=== PATIENT | female | born 1975 | race Caucasian/White ===

== ENCOUNTER 2018-02-13 20:28 | Emergency (ER) | payer OTHER, SELFPAY ==
[2018-02-13 20:28] VITALS: BP 154/124; PULSE 92; RESP 20; TEMP 36.7; O2SAT 98; BMI 29.8
[2018-02-13] MEDS: HYDROcodone Bitartrate/Apap 5/325 Tablet PO (21:17)
--- NOTE | 2018-02-13 21:32 | ED.DCSUM_ITS ---
- ER Visit Summary Date of Service: 02/13/18 Chief Complaint: Fingertip laceration History of Present Illness: The patient is a 42 F presents to the emergency department with work-related fingertip laceration. Patient was cleaning a table. She incised her distal tip of her middle finger on a metal bar. She states that it took the tip off. She has been unable to get it to stop bleeding. It happened about an hour prior to arrival. She does not take anticoagulants. She denies any other injuries. The patient is otherwise healthy. Physical Examination: Name is relatively unremarkable. Patient has 1 cm ovoid area of tissue loss on the distal tip of the finger. There was no visible bone. It is just through the dermis. There is no nailbed involvement. There is some mild venous bleeding. There is no pulsatile bleeding. Rest of exam is unremarkable. Flexion is preserved. Extension is preserved. Test Results: [] Emergency Department Course and Treatment: Patient has complete tissue loss of the distal tip of the finger. There is no evidence of bony injury. There is nothing that can be primary closed due to the amount of tissue loss. Surgifoam dressing was placed with care taken to prevent aggressive compression and ischemic digit. There was no bleeding through the tip. The patient will keep this dressing in place for 48 hours. I did rehabilitation counsellor her that if she has any continued bleeding or worsening pain, she needs to be reevaluated in the dressing will need to be removed. [facility] The patient will be discharged home. Treatment Plan: [] Disposition: [] Impression: 1. Left third finger skin avulsion This note was generated with [employer] dictation software. It may contain incorrect words, spelling, and punctuation that were not noted in review of the chart prior to signing ED Disposition - Plan for ED Patient: Chief Complaint: Laceration Instructions: ED Avulsion Dermal Referrals: [facility] [GROUP OF PHYSICIANS] -
== END 2018-02-13 21:49 | disposition home or self-care (01) ==
LOC: ED 21:26
PROVIDERS: Emergency Provider Emergency Medicine; Family Provider Family Medicine; PCP Family Medicine
DX: S61.213A Laceration without foreign body of left middle finger without damage to nail, initial encounter (principal); W26.9XXA Contact with unspecified sharp object(s), initial encounter; Y93.G1 Activity, food preparation and clean up; Y92.89 Other specified places as the place of occurrence of the external cause; Y99.0 Civilian activity done for income or pay
CPT/HCPCS: 99283; A4216

== ENCOUNTER 2018-03-30 20:17 | Emergency (ER) | payer MEDICAID, SELFPAY ==
[2018-03-30 20:18] VITALS: BP 125/69; PULSE 90; RESP 14; TEMP 37; O2SAT 96; BMI 28.9
--- NOTE | 2018-03-30 21:49 | ED.VISSUMM ---
- ER Visit Summary Date of Service: 03/30/18 Chief Complaint: [] Rash History of Present Illness: The patient is a 42 F [] complaining of rash to the upper and lower extremities and abdomen and back. Patient reports she recently went tanning in a tanning bed and applied lotion to her body. She reports this last exposure was 4 days ago. She reports symptoms started today. Denies fevers denies other complaints at this time. Reports slight itching. Physical Examination: [] Afebrile, vital signs stable. Examination of the skin reveals lesions consistent with contact dermatitis. Remainder of exam is unremarkable. Test Results: [] None. Emergency Department Course and Treatment: [] Patient given prednisone and Vistaril for symptom relief. She was given prescriptions for both. She was encouraged to discontinue suntan lotion and suntanning. Treatment Plan: [] Outpatient prescriptions and follow-up with PCP. Disposition: [] Discharge, stable. Impression: [] Contact dermatitis This note was generated with [employer] dictation software. It may contain incorrect words, spelling, and punctuation that were not noted in review of the chart prior to signing ED Disposition - Plan for ED Patient: Chief Complaint: Rash Referrals: Justin Duncan MD [Primary Care Provider] -
[2018-03-30 21:50] VITALS: BP 131/80; PULSE 80; RESP 14; O2SAT 99
--- NOTE | 2018-03-30 21:51 | ED.DEP ---
ED Disposition - Plan for ED Patient: Disposition: Home or Assisted Living Chief Complaint: Rash Instructions: ED Allergic Reaction General Other Prescriptions: Hydroxyzine Pamoate [Vistaril] 50 mg PO BID PRN PRN #20 cap PRN Reason: Itching Prednisone [Deltasone] 40 mg PO DAILY 5 Days #5 tab Referrals: Justin Duncan MD [Primary Care Provider] -
[2018-03-30] MEDS: predniSONE 20 MG Tablet 40 MG PO (21:58)
[2018-03-30] MEDS: hydrOXYzine PAM 25 MG Capsule 50 MG PO (21:59)
== END 2018-03-30 22:00 | disposition home or self-care (01) ==
PROVIDERS: Emergency Provider Emergency Medicine; Family Provider Family Medicine; PCP Family Medicine
DX: L25.9 Unspecified contact dermatitis, unspecified cause (principal); Z79.899 Other long term (current) drug therapy
CPT/HCPCS: 99283

== ENCOUNTER 2019-06-14 12:28 | Emergency (ER) | payer MEDICAID, SELFPAY ==
[2019-06-14 12:28] VITALS: BP 127/83; PULSE 82; RESP 18; TEMP 36.4; O2SAT 98; BMI 29.1
[2019-06-14 12:47] LABS: Red Blood Cells-Urine 0 SEEN /hpf (0-5)
[2019-06-14 12:58] LABS: Color, Urine Yellow (Yellow); Glucose, Dipstick Normal (Normal); Ketone-Dipstick 5 mg/dl (Negative); Leukocyte Esterase-Dipstick 25 /ul (Negative); Nitrite-Dipstick Negative (Negative); Occult Blood-Urine Negative /ul (Negative); Protein-Dipstick Negative (Negative); Specific Gravity, Urine 1.025 (1.002-1.030); Urine Bilirubin Dipstick Negative (Negative); Urine Clarity Sl. Cloudy (Clear); Urine Urobilinogen Normal (Normal)
[2019-06-14 13:01] LABS: Bacteria 1+ /hpf (None Seen); Mucous, Urine 1+ /hpf (<or=2+); Squamous Epithelial Cells - UA 0-5 SEEN /hpf (5-10); White Blood Cells 0-5 SEEN /hpf (0-5)
--- NOTE | 2019-06-14 13:29 | ED.VIS.GEN ---
History of Present Illness Chief Complaint: Complaint Detail of Chief Complaint: Dysuria and frequency Informant: Patient Onset: Days Current Severity: Mild Maximum Severity: Moderate Narrative: Patient states that she developed diarrhea after eating at [employer] 3 days ago. She believes she dehydrated herself. Over the past 2 days she has noted dysuria, frequency, with small amounts of urine produced. She has not had a UTI in several years. Had a hysterectomy 3 years ago. No vaginal discharge or lesions. Past Medical History - Allergies and Home Meds Allergies/Adverse Reactions: Allergies egg Allergy (Verified 06/14/19 12:31) Other Fish Containing Products Allergy (Verified 06/14/19 12:31) Anaphylaxis Penicillins [PCN] Allergy (Verified 06/14/19 12:31) Swelling shellfish derived Allergy (Verified 06/14/19 12:31) Anaphylaxis Primary Care Physician: Justin Duncan MD [Primary Care Provider] - Prior records reviewed: Yes Past Medical History: - - Reviewed Smoking Status: Current every day smoker Review of Systems General: Denies: Chills, Fever Eyes: Denies: Visual changes - bilaterally ENT: Denies: Bilateral ear pain Cardiovascular: Denies: Chest pain Respiratory: Denies: Dyspnea Gastrointestinal: Reports: Abdominal pain, Diarrhea - Resolved. Denies: Nausea, Vomiting Genitourinary: Reports: Dysuria, Frequency Musculoskeletal: Denies: Back pain Neurological: Denies: Headache Psych: Denies: Depression Hematologic: Denies: Easy bruising Allergy: Denies: Uticaria Physical Exam Vital Signs/Narrative: Vital Signs Temp Pulse Resp BP Pulse Ox 06/14/19 12:28 97.6 F L 82 18 127/83 H 98 Inital Vital Signs reviewed: Yes General: Well nourished, Well developed Head: Normocephalic ENT: Moist mucous membranes Cardiovascular: Regular rate, Regular rhythm Respiratory: No distress, CTA bilaterally Abdomen: Soft, Nontender Back: Nontender Skin: Normal color, No rash Neurological: Alert, Oriented x3 Psychological: Normal affect Diagnostic/Tx/Re-eval Laboratory Results 06/14/19 12:38 Urine Color Yellow Urine Clarity Sl. Cloudy Urine pH 5.0 Ur Specific [place] 1.025 Urine Protein Negative Urine Glucose (UA) Normal Urine Ketones 5 H Urine Occult Blood Negative Urine Nitrite Negative Urine Bilirubin Negative Urine Urobilinogen Normal Ur Leukocyte Esterase 25 H Urine RBC 0 SEEN Urine WBC 0-5 SEEN Ur Squamous Epith Cells 0-5 SEEN Urine Bacteria 1+ Urine Mucus 1+ - Medical Decision Making Urinalysis was obtained via triage order. This does reveal 1+ bacteria but no other significant concern for infection. The patient does however have symptoms consistent with cystitis. I do not feel a distended bladder, but because she states she is only able to urinate small amounts and has been drinking a lot a bladder scan will be performed to ensure she is not retaining. She will be treated with a 3-day course of Bactrim. ED Disposition - Plan for ED Patient: Disposition: Home or Assisted Living Diagnosis: Cystitis Instructions: Bladder Infection, Female (Adult) Prescriptions: Smz/Tmp Ds [Bactrim Ds] 1 tablet PO BID #6 tablet Referrals: Justin Duncan MD [Primary Care Provider] - 1 Week if not improving
[2019-06-14 13:51] VITALS: RESP 18
[2019-06-14] MEDS: Smz/Tmp Ds Tablet 1 TABLET PO (13:57)
== END 2019-06-14 13:59 | disposition home or self-care (01) ==
LOC: ED 13:38
PROVIDERS: Emergency Provider Emergency Medicine; Family Provider Family Medicine; PCP Family Medicine
DX: N30.90 Cystitis, unspecified without hematuria (principal); F17.200 Nicotine dependence, unspecified, uncomplicated
CPT/HCPCS: 81001; 99283

== ENCOUNTER 2020-02-23 12:14 | Emergency (ER) | payer MEDICAID, SELFPAY ==
[2020-02-23 12:15] VITALS: BP 111/71; PULSE 74; RESP 14; TEMP 37; O2SAT 100; BMI 30.4
--- NOTE | 2020-02-23 12:31 | CT_ITS ---
STUDY: CT ABDOMEN AND PELVIS WITHOUT CONTRAST REASON FOR EXAM: Female, 44 years old. LLQ PAIN X 1 WEEK. ON ANTIBIOTICS FOR DIVERTICULITIS. PRIOR HYSTER,GB AND TUBIAL LIGATION RADIATION DOSAGE (If Supplied By Facility): CTDIvol = ( 12.06 ) mGy, DLP = ( 579.66 ) mGycm TECHNIQUE: Transaxial images were obtained from the dome of the diaphragm to the symphysis pubis without oral contrast, and without intravenous contrast. Sagittal and coronal images were reconstructed. Individualized dose optimization techniques were used for this CT. COMPARISON: Comparison is made with prior examination July 05, 2013. FINDINGS: Minimal increased markings at the lung bases suggestive of atelectasis. The visualized portions of the heart are within normal limits. Normal liver. There are surgical clips in the gallbladder fossa consistent with a prior cholecystectomy. Normal spleen. Normal pancreas. Normal bilateral adrenal glands. Normal right kidney. Normal left kidney. There is a small hiatal hernia. Normal small intestine. There are scattered colonic diverticula consistent with diverticulosis. The appendix is visualized and appears normal. Normal abdominal aorta. Normal inferior vena cava. There is borderline retroperitoneal lymphadenopathy with enlarged nodes no greater than 10mm in the short axis diameter. Normal urinary bladder. There is absence of the uterus consistent with a prior hysterectomy. Normal abdominal wall. Normal osseous structures. CT/Abdomen/Pelvis without Cont IMPRESSION: Status post cholecystectomy. No acute abnormality is seen. Electronically Signed: Rashi Alcazar, at 13:17 EDT , Service support ,
--- NOTE | 2020-02-23 12:38 | ED.VISSUMM ---
- ER Visit Summary Date of Service: 02/23/20 Chief Complaint: Abdominal pain History of Present Illness: The patient is a [address] Craft. She reports that she has had left lower quadrant abdominal pain that began 2 weeks ago. Initially it was just a pain with having a bowel movement and emptying her bladder that lasted for 15 or 20 minutes. It is become continuous over the past 3 days. It is a cramping, squeezing pain that is 6 out of 10 at worst and 3-10 currently. Is worsened by movement or heat. Is relieved by an ice pack. She denies any associated nausea, vomiting, or diarrhea. Her last bowel movement was today. No melena or hematochezia. No dysuria or frequency. Patient reports that she has been on Cipro for the past 3 days. Physical Examination: Vitals: Stable. Afebrile. General: Well-nourished and well-developed. Head: Normocephalic atraumatic. Neck: Supple, no lymphadenopathy. No JVD. Nontender. Cardiovascular: Regular rate and rhythm. No murmurs. Respiratory: No respiratory distress. Clear to auscultation bilaterally. Abdominal: Soft, mild left lower quadrant tenderness to palpation, nondistended, normal bowel sounds. No guarding, rebound, or peritoneal signs. Back: Nontender. Extremities: Nontender, no edema. Skin: Normal color, no rash. Neurologic: Alert and oriented ?3. Cranial nerves II through XII are intact. Normal strength and sensation. Psych: Normal affect. Test Results: CBC shows a hemoglobin of 16.2. Chem-7 is normal. UA is normal. Clinical Impression(s) from Imaging Studies Abdomen/Pelvis CT 02/23/20 12:31 IMPRESSION: Status post cholecystectomy. No acute abnormality is seen. Electronically Signed: Rashi Alcazar, at 13:17 EDT , Service support , Emergency Department Course and Treatment: Patient had an IV placed. She is given Toradol and Zofran IV. She is resting comfortably. CT does show diverticulosis. There is no diverticulitis, abscess, or microperforation. However, clinically the patient does have pain and a history consistent with diverticulitis. She has been on Cipro for 3 days. She was given a dose of Flagyl here. Treatment Plan: Patient will be treated as diverticulitis. She is discharged on Cipro, Flagyl, Zofran, Colace, and given a prescription for 12 [place]. Instructed to follow-up with Dr. Jasbir Raman in 10 to 14 days if not improving. She does understand that if this does not improve with this that she may require further evaluation including a colonoscopy. Return to the emergency department for any worsening symptoms. Disposition: To home in improved and stable condition. Impression: 1. Abdominal pain, acute. This note was generated with [employer] dictation software. It may contain incorrect words, spelling, and punctuation that were not noted in review of the chart prior to signing ED Disposition - Plan for ED Patient: Instructions: ED Diverticulitis Prescriptions: Ciprofloxacin [Cipro] 500 mg PO BID #20 tab Prescription Printed Docusate Sodium [Colace] 100 mg PO DAILY #20 cap Prescription Printed metroNIDAZOLE [Flagyl] 500 mg PO Q6H #40 tab Prescription Printed Hydrocodone Bitart/Apap 5-325 [[place] 5MG-325MG] 1 tab PO Q4H PRN PRN 2 Days #10 tab PRN Reason: Pain Prescription Printed Ondansetron [Zofran Odt] 4 mg PO Q8H PRN PRN #10 tab PRN Reason: Nausea Prescription Printed Referrals: Justin Duncan MD [Primary Care Provider] - 10-14 Days if not better
[2020-02-23 12:46] LABS: Mucous, Urine 0 SEEN /hpf (<or=2+); Red Blood Cells-Urine 0 SEEN /hpf (0-5); White Blood Cells 0 SEEN /hpf (0-5)
[2020-02-23] MEDS: Ondansetron 4 MG/2 ML Vial IV (12:47)
[2020-02-23] MEDS: 0.9% Normal Saline 1,000 ML 1000 ML IV (12:47)
[2020-02-23] MEDS: Ketorolac 30 MG/ML Syringe IV (12:48)
[2020-02-23 12:49] LABS: Color, Urine Straw (Yellow); Glucose, Dipstick Normal (Normal); Ketone-Dipstick Negative (Negative); Leukocyte Esterase-Dipstick Negative /ul (Negative); Nitrite-Dipstick Negative (Negative); Occult Blood-Urine Negative /ul (Negative); Protein-Dipstick Negative (Negative); Specific Gravity, Urine 1.015 (1.002-1.030); Urine Bilirubin Dipstick Negative (Negative); Urine Clarity Clear (Clear); Urine Urobilinogen Normal (Normal)
[2020-02-23 12:49] LABS: Absolute Lymphocyte Count 3.03 X10^3/uL (0.83-4.51); Absolute Neutrophil Count 6.5 X10^3/uL (2.0-7.7); Basophil# 0.05 X10^3/uL; Basophil% 0.5 % (0-1); Eosinophil# 0.17 X10^3/uL; Eosinophils% 1.6 % (0-5); Hemoglobin 16.2 g/dL (12.0-15.0); Lymphocyte # 3.03 X10^3/ul (4.0); Mean Corp Hgb Conc 34.5 g/dL (32-36); Mean Corpuscular Hgb 30.5 pg (27.0-32.0); Mean Corpuscular Volume 88.3 fL (81-99); Monocyte# 0.96 X10^3/uL; Monocyte% 8.9 % (0-10); NRBC Flagged by Analyzer 0 % (0-5); Neutrophil # 6.54 X10^3/uL (2.7-7.7); Neutrophil % 60.4 % (47-70); Platelet Count 324 K/mm3 (150-450); RBC Distribution Width CV 13.2 % (11.6-14.6); RBC Distribution Width SD 42.5 fl (35.1-43.9); Red Blood Count 5.32 M/mm3 (4.2-5.4); White Blood Count 10.8 K/mm3 (4.4-11.0)
[2020-02-23 13:02] LABS: Anion Gap 5 (5-15); BUN 11 mg/dL (7-18); Calcium,Total 9.3 mg/dL (8.5-10.1); Chloride 105 mmol/L (98-107); Creatinine, Serum 0.73 mg/dL (0.55-1.02); EST Glomerular Filtration Rate 91 mL/min (>60); Est Glom Filt Rate - Afr Amer 110 mL/min (>60); Estimated Creatinine Clearance 87.57 ml/min; Glucose 86 mg/dL (74-106); Potassium 3.8 mmol/L (3.5-5.1); Sodium Level 138 mmol/L (136-145)
[2020-02-23 13:12] LABS: Bacteria RARE /hpf (None Seen); Squamous Epithelial Cells - UA 0-5 SEEN /hpf (5-10)
[2020-02-23] MEDS: metroNIDAZOLE 500 MG Tablet PO (14:25)
[2020-02-23 14:27] VITALS: BP 108/76; PULSE 81; RESP 108; O2SAT 100
[2020-02-23 14:34] VITALS: BP 108/76; PULSE 81; RESP 16; O2SAT 100
== END 2020-02-23 14:38 | disposition home or self-care (01) ==
PROVIDERS: Emergency Provider Emergency Medicine; PCP Family Medicine
DX: R10.32 Left lower quadrant pain (principal); F32.9 Major depressive disorder, single episode, unspecified; E78.00 Pure hypercholesterolemia, unspecified
CPT/HCPCS: 74176; 80048; 81001; 85025; 96361; 96365; 96375; 99284; J7030; A4216; J2405

== ENCOUNTER 2020-03-12 21:46 | Emergency (ER) | payer MEDICAID, SELFPAY ==
[2020-03-12 21:47] VITALS: BP 129/51; PULSE 86; RESP 18; TEMP 36.6; O2SAT 96; BMI 30.4
--- NOTE | 2020-03-12 22:35 | ED.DCSUM_ITS ---
- ER Visit Summary Date of Service: 03/12/20 Chief Complaint: Abdominal pain History of Present Illness: The patient is a 44 F who presents with abdominal pain that began yesterday and has been getting worse. Patient describes the pain is sharp and burning. Patient states the pain is worse over the epigas tric, right upper quadrant, and lower abdomen. Patient states nothing makes it better or worse. Patient admits to nausea but denies any vomiting. Patient denies any diarrhea, melena, or hematochezia. Patient admits to a fever at home of up to 102. Patient states she did have an episode of blurry vision when her fever was elevated. Patient states she took Tylenol prior to arrival and her fever improved. Patient denies any dysuria or hematuria. Patient states she was recently treated for diverticulitis. Physical Examination: Vital signs are stable. Patient is afebrile. Patient is in no acute distress. Oral mucosa is pink and moist. Neck is supple. Trachea is midline. There is no JVD noted. Heart was regular rate and rhythm. Lungs are clear and equal bilaterally. Abdomen is soft. Bowel sounds are normal. There is diffuse tenderness. There is no rebound or guarding noted. Skin is warm dry. Cranial nerves II through XII are intact. There are no focal motor or sensory deficits noted. Extremities are intact. There is no calf tenderness or edema. Test Results: CBC shows a mild leukocytosis of 14.5. Comprehensive metabolic profile and lipase were essentially within normal limits. Urinalysis was normal. CT scan of the abdomen and pelvis was obtained. There is colitis of the ascending and transverse colon. There is some fluid in the appendix with slight prominence of the wall. The diameter is 6 mm which is still within normal limits. This was interpreted by the radiologist and reviewed by myself. Emergency Department Course and Treatment: Patient was given IV fluids here. Patient was given her first dose of Cipro and Flagyl here. Patient was given prescriptions for Cipro and Flagyl. Patient was advised of her CT findings regarding her appendix. Patient was instructed to return if her right lower quadrant pain is getting worse in any way. I feel the patient warrants a trial of antibiotics since the colitis affects the a sending colon and the slight wall thickening of the appendix may be related to that. Patient understands and is agreeable with the plan. All questions were answered. Disposition: Discharge home Impression: Colitis This note was generated with [employer] dictation software. It may contain incorrect words, spelling, and punctuation that were not noted in review of the chart prior to signing ED Disposition - Plan for ED Patient: Disposition: Home or Assisted Living Diagnosis: Colitis Prescriptions: Ciprofloxacin [Cipro] 500 mg PO BID #20 tab Prescription Printed metroNIDAZOLE [Flagyl] 500 mg PO Q6H #40 tab Prescription Printed Referrals: Justin Duncan MD [Primary Care Provider] - 3-5 Days
[2020-03-12 23:10] LABS: Bacteria 0 SEEN /hpf (None Seen); Mucous, Urine 0 SEEN /hpf (<or=2+)
[2020-03-12 23:12] LABS: Absolute Lymphocyte Count 1.27 X10^3/uL (0.83-4.51); Absolute Neutrophil Count 11.9 X10^3/uL (2.0-7.7); Basophil# 0.03 X10^3/uL; Basophil% 0.2 % (0-1); Color, Urine Yellow (Yellow); Eosinophil# 0.06 X10^3/uL; Eosinophils% 0.4 % (0-5); Glucose, Dipstick Normal (Normal); Hemoglobin 14.3 g/dL (12.0-15.0); Ketone-Dipstick 5 mg/dl (Negative); Leukocyte Esterase-Dipstick 25 /ul (Negative); Lymphocyte # 1.27 X10^3/ul (4.0); Lymphocyte % 8.8 % (19-41); Mean Corpuscular Volume 90.9 fL (81-99); Mean Platelet Vol. 9.2 fl (6.2-12.0); Monocyte# 1.09 X10^3/uL; Monocyte% 7.5 % (0-10); NRBC Flagged by Analyzer 0 % (0-5); Neutrophil # 11.91 X10^3/uL (2.7-7.7); Neutrophil % 82.4 % (47-70); Nitrite-Dipstick Negative (Negative); Occult Blood-Urine Negative /ul (Negative); Platelet Count 228 K/mm3 (150-450); Protein-Dipstick Negative (Negative); RBC Distribution Width CV 13.5 % (11.6-14.6); RBC Distribution Width SD 44.2 fl (35.1-43.9); Red Blood Count 4.62 M/mm3 (4.2-5.4); Urine Bilirubin Dipstick Negative (Negative); Urine Clarity Clear (Clear); Urine Urobilinogen 1 mg/dl (Normal); White Blood Count 14.5 K/mm3 (4.4-11.0)
[2020-03-12 23:17] LABS: Red Blood Cells-Urine 0-5 SEEN /hpf (0-5); Squamous Epithelial Cells - UA 0-5 SEEN /hpf (5-10); White Blood Cells 0-5 SEEN /hpf (0-5)
[2020-03-12 23:59] LABS: AST(SGOT) 26 U/L (15-37); Alanine Aminotransfer ALT/SGPT 31 U/L (13-56); Albumin, Serum 3.3 g/dL (3.2-5.0); Alkaline Phosphatase 77 U/L (45-117); Anion Gap 7 (5-15); BUN 12 mg/dL (7-18); BUN/Creat Ratio 19.2 RATIO (10-20); Calcium,Total 8.6 mg/dL (8.5-10.1); Chloride 109 mmol/L (98-107); Creatinine, Serum 0.62 mg/dL (0.55-1.02); EST Glomerular Filtration Rate 109 mL/min (>60); Est Glom Filt Rate - Afr Amer 132 mL/min (>60); Estimated Creatinine Clearance 103.11 ml/min; Globulin 3.2 g/dL (2.2-4.2); Glucose 98 mg/dL (74-106); Lipase 69 U/L (73-393); Protein, Total 6.5 g/dL (6.4-8.2); Sodium Level 137 mmol/L (136-145)
[2020-03-13] MEDS: 0.9% Normal Saline 1,000 ML 1000 ML IV (00:39)
[2020-03-13 01:42] VITALS: BP 121/69; PULSE 88; RESP 16; TEMP 37.2; O2SAT 100
[2020-03-13] MEDS: metroNIDAZOLE 500 MG Tablet PO (01:42)
[2020-03-13] MEDS: Ciprofloxacin 500 MG Tablet PO (01:42)
--- NOTE | 2020-03-13 22:33 | CT_ITS ---
STUDY: CT ABDOMEN AND PELVIS WITH CONTRAST REASON FOR EXAM: Female, 44 years old. ABDOMEN PAIN,FEVER,NAUSEA,DIARRHEA AND ELEVATED WBC -- RECENT DX OF DIVERTICULITIS -- HX:HLD,GERD,CHOLECYSTECTOMY,HYSTERECTOMY,TUBAL RADIATION DOSAGE (If Supplied By Facility): CTDIvol = ( 15.97 ) mGy, DLP = ( 960.55 ) mGycm TECHNIQUE: Transaxial images were obtained from the dome of the diaphragm to the symphysis pubis without oral contrast. Oral and amp; IV Gastrografin and amp; 100mL Isovue-300 was administered. Sagittal and coronal images were reconstructed. Individualized dose optimization techniques were used for this CT. COMPARISON: February 23, 2020 FINDINGS: The visualized lung bases are unremarkable. The visualized portions of the heart are within normal limits. Normal liver. There has been a cholecystectomy. Normal spleen. Normal pancreas. Normal bilateral adrenal glands. Normal right kidney. Normal left kidney. Normal visualized stomach. Normal small intestine. There is diffuse mucosal thickening of the cecum, RIGHT colon and transverse colon consistent with nonspecific colitis. This could be infectious or inflammatory. There is NO diverticulosis, diverticulitis, ischemic colitis, obstruction or perforation. The appendix is identified. There is fluid in the lumen and slight prominence of the wall. Maximum diameter is 6 mm which is within normal limits. However, very early appendicitis not excluded. Correlation with clinical data is suggested. Normal abdominal aorta. Normal inferior vena cava. There is reactive mesenteric adenopathy most likely related to colitis. Normal urinary bladder. There is been a hysterectomy. There is NO ascites or free air. Normal abdominal wall. Normal osseous structures. CT/Abdomen/Pelvis WITH Contrast IMPRESSION: There has been a cholecystectomy. There is diffuse mucosal thickening of the cecum, RIGHT colon and transverse colon consistent with nonspecific colitis. This could be infectious or inflammatory. There is NO diverticulosis, diverticulitis, ischemic colitis, obstruction or perforation. The appendix is identified. There is fluid in the lumen and slight prominence of the wall. Maximum diameter is 6 mm which is within normal limits. However, very early appendicitis not excluded. Correlation with clinical data is suggested. There is reactive mesenteric adenopathy most likely related to colitis. There is been a hysterectomy. There is NO ascites or free air. Electronically Signed: Freddy Dunham MD at 0:57 EDT , Service support ,
== END 2020-03-13 02:10 | disposition home or self-care (01) ==
PROVIDERS: Emergency Provider Emergency Medicine; PCP Family Medicine
DX: K52.9 Noninfective gastroenteritis and colitis, unspecified (principal); F41.9 Anxiety disorder, unspecified; F32.9 Major depressive disorder, single episode, unspecified
CPT/HCPCS: 74177; 80053; 81001; 83690; 85025; 96360; 96361; 99284; J7030; Q9967; A4216

== ENCOUNTER 2020-03-14 18:30 | Emergency (ER) | payer MEDICAID, SELFPAY ==
[2020-03-14 18:31] VITALS: BP 155/78; PULSE 75; RESP 16; TEMP 36.4; O2SAT 96; BMI 30.1
--- NOTE | 2020-03-14 18:47 | CT_ITS ---
STUDY: CT ABDOMEN AND PELVIS WITHOUT CONTRAST REASON FOR EXAM: Female, 44 years old. Persistent RLQ pain, seen 5/3 for colitis/diverticulitis, ? appy. Prior cholecystectomy, hysterectomy. RADIATION DOSAGE (If Supplied By Facility): CTDIvol = ( 11.00 ) mGy, DLP = ( 560.67 ) mGycm TECHNIQUE: Transaxial images were obtained from the dome of the diaphragm to the symphysis pubis without oral contrast, and without intravenous contrast. Sagittal and coronal images were reconstructed. Individualized dose optimization techniques were used for this CT. COMPARISON: None. FINDINGS: There is minor atelectasis within the dependent portion of the lungs and tiny effusions. The visualized portions of the heart are within normal limits. Normal liver. Gallbladder has been removed surgically.. Normal spleen. Normal pancreas. Normal bilateral adrenal glands. Normal right kidney. Normal left kidney. Normal visualized stomach. Normal small intestine. Diffusely a haustral appearance to the cecum and ascending colon with mild stranding in the fat consistent with nonspecific colitis.. The appendix is visualized and appears normal. Normal abdominal aorta. Normal inferior vena cava. Normal retroperitoneum. Incompletely distended thick-walled bladder likely of no significance.. There is a trace of free fluid in the pelvis on the right Postop change status post hysterectomy Normal abdominal wall. Normal osseous structures. Findings consistent with nonspecific inflammatory bowel disease involving primarily the cecum and ascending colon. There is however significant interval improvement since prior exam. CT/Abdomen/Pelvis without Cont IMPRESSION: Persistent inflammatory bowel disease involving the cecum and ascending colon with interval improvement since previous study. No evidence for acute appendicitis.. Other findings as above Electronically Signed: Adrian Comer MD at 19:58 EDT , Service support ,
--- NOTE | 2020-03-14 18:48 | ED.DCSUM_ITS ---
History of Present Illness Chief Complaint: Abd Pain Informant: Patient - Abdominal Pain/Flank Pain Onset: Days - 4-5 Context: Gradual Onset Timing: Continuous Quality: Aching Location: RLQ Current Severity: Moderate Maximum Severity: Moderate - Nausea/Vomiting/Emesis GI Symptom: Negative for: Nausea, Vomiting - Diarrhea/Melena/Hematochezia GI Symptom: Negative for: Diarrhea, Melena, Hematochezia Associated Symptoms: Negative for: Dysuria, Frequency, Hematuria, Urgency Narrative: Patient has been having discomfort in her right abdomen and burning across the top of her abdomen for the past 4 or 5 days. She was here 2 days ago, had a CT showing a sending and transverse colitis, in addition to a swollen appendix. However she was tender in all of this area. She was advised that if her pain worsens in the right lower quadrant that she should return. She returns because this has happened. She states the rest of the discomfort in her abdomen is gone. Her discomfort is worse with bumps in the road. She has had significant decreased appetite. She denies any nausea or vomiting. The pain radiates into her right low back. No urinary symptoms. She states prior to this, she had acute diverticulitis. It was left lower quadrant pain. She was put on ciprofloxacin only but got worse and then came to the ER where they prescribed her a new 10-day course of Cipro in addition to Flagyl. This ended up in resolved condition. She started having this little right sided discomfort about a week after she finished that antibiotic. She was put on Cipro and Flagyl again starting 2 days ago when she was seen. - Past Medical History (1) Diverticulosis Status: Chronic Past Medical History - Allergies and Home Meds Allergies/Adverse Reactions: Allergies egg Allergy (Verified 03/14/20 18:31) Other Fish Containing Products Allergy (Verified 03/14/20 18:31) Anaphylaxis Penicillins [PCN] Allergy (Verified 03/14/20 18:31) Swelling shellfish derived Allergy (Verified 03/14/20 18:31) Anaphylaxis Primary Care Physician: Justin Duncan MD [Primary Care Provider] - Smoking Status: Former smoker Drugs: None Review of Systems General: Denies: Chills, Fever, Sweats Eyes: Denies: Visual changes - bilaterally, Diplopia ENT: Denies: Rhinorrhea, Sore throat Cardiovascular: Denies: Chest pain, Palpitations Respiratory: Denies: Dyspnea, Cough, Dyspnea on exertion Gastrointestinal: Reports: Abdominal pain, - - Anorexia. Denies: Nausea, Vomiting, Diarrhea, Melena, Hematochezia Genitourinary: Denies: Dysuria, Hematuria, Frequency Musculoskeletal: Reports: Back pain. Denies: Swelling, Extremity Pain Skin: Denies: Rash, Wounds Neurological: Denies: Headache, Weakness, Numbness Physical Exam Vital Signs/Narrative: Vital Signs Temp Pulse Resp BP Pulse Ox 03/14/20 18:31 97.6 F L 75 16 155/78 H 96 Inital Vital Signs reviewed: Yes General: Well nourished, Well developed, No Acute Distress Head: Normocephalic, Atraumatic Eyes: Perrl, EOMI ENT: Moist mucous membranes, No rhinorrhea Neck: Supple, Nontender Cardiovascular: Regular rate, Regular rhythm, No murmurs Respiratory: No distress, CTA bilaterally, Chest nontender Abdomen: Soft, Nondistended, Normal bowel sounds, Tender - Right lower quadrant to deep palpation at McBurney's point. Rest of abdomen is nontender, Rovsig's sign. Negative for: Guarding, Rebound tenderness, Psoas sign, Obturator sign, Solis's sign Back: Nontender, Normal Inspection. Negative for: CVA tenderness Extremities: Nontender, No edema Skin: Normal color, No rash, No Trauma Neurological: Alert, Oriented x3, Cranial nerves II-XII grossly intact, Normal Strength, Normal Sensation, Normal Gait Psychological: Normal affect, Normal Mood Diagnostic/Tx/Re-eval Impressions Abdomen/Pelvis CT 03/14/20 18:47 IMPRESSION: Persistent inflammatory bowel disease involving the cecum and ascending colon with interval improvement since previous study. No evidence for acute appendicitis.. Other findings as above Electronically Signed: Adrian Comer MD at 19:58 EDT , Service support , 03/14/20 18:47 Abdomen/Pelvis without Cont [CT] Stat Laboratory Results 03/14/20 03/14/20 19:35 19:35 WBC 9.9 RBC 4.96 Hgb 14.9 Hct 44.8 MCV 90.3 MCH 30.0 MCHC 33.3 RDW Std Deviation 44.8 H RDW Coeff of Babs 13.6 Plt Count 248 MPV 9.2 Immature Gran % (Auto) 0.500 Neut % (Auto) 50.4 Lymph % (Auto) 32.4 [place] % (Auto) 14.4 H Eos % (Auto) 1.8 Baso % (Auto) 0.5 Absolute Neuts (auto) 5.0 Absolute Lymphs (auto) 3.20 Nucleated RBC % 0 Sodium 121 L Potassium TNP Chloride 104 Carbon Dioxide 21.0 Anion Gap -4 L BUN 10 Creatinine 0.62 Estim Creat Clear Calc 103.11 Est GFR (MDRD) Af Amer 133 Est GFR (MDRD) Non-Af 110 BUN/Creatinine Ratio 16.1 Glucose 70 L Calcium 8.3 L - Medical Decision Making Patient was rescanned given the possibility of progression to acute appendicitis. Reassuringly, the scan essentially rules out acute appendicitis showing improvement there, but persistence of the colonic wall inflammatory changes consistent with nonspecific colitis. Her white blood count is dras tically improved now below 10. Patient was reassured, offered analgesics and discharged with advice to continue the antibiotics until completed and follow-up with her doctor, she may need a follow-up colonoscopy when she is doing better. ED Disposition - Plan for ED Patient: Disposition: Home or Assisted Living Diagnosis: Colitis, Right lower quadrant abdominal pain Instructions: Ulcerative Colitis, ED Gastroenteritis Bacterial Referrals: Justin Duncan MD [Primary Care Provider] - 5-7 Days
[2020-03-14] MEDS: 0.9% Normal Saline 1,000 ML 1000 ML IV (19:09)
[2020-03-14 19:41] LABS: Basophil# 0.05 X10^3/uL; Basophil% 0.5 % (0-1); Eosinophil# 0.18 X10^3/uL; Eosinophils% 1.8 % (0-5); Hematocrit 44.8 % (37-47); Hemoglobin 14.9 g/dL (12.0-15.0); Lymphocyte % 32.4 % (19-41); Mean Corp Hgb Conc 33.3 g/dL (32-36); Mean Corpuscular Volume 90.3 fL (81-99); Mean Platelet Vol. 9.2 fl (6.2-12.0); Monocyte# 1.42 X10^3/uL; Monocyte% 14.4 % (0-10); NRBC Flagged by Analyzer 0 % (0-5); Neutrophil # 4.99 X10^3/uL (2.7-7.7); Neutrophil % 50.4 % (47-70); Platelet Count 248 K/mm3 (150-450); RBC Distribution Width CV 13.6 % (11.6-14.6); RBC Distribution Width SD 44.8 fl (35.1-43.9); Red Blood Count 4.96 M/mm3 (4.2-5.4); White Blood Count 9.9 K/mm3 (4.4-11.0)
[2020-03-14 20:03] LABS: Anion Gap -4 (5-15); BUN 10 mg/dL (7-18); BUN/Creat Ratio 16.1 RATIO (10-20); Calcium,Total 8.3 mg/dL (8.5-10.1); Chloride 104 mmol/L (98-107); Creatinine, Serum 0.62 mg/dL (0.55-1.02); EST Glomerular Filtration Rate 110 mL/min (>60); Est Glom Filt Rate - Afr Amer 133 mL/min (>60); Estimated Creatinine Clearance 103.11 ml/min; Glucose 70 mg/dL (74-106); Sodium Level 121 mmol/L (136-145)
[2020-03-14 21:09] VITALS: BP 127/72; PULSE 66; RESP 16; O2SAT 99
== END 2020-03-14 21:10 | disposition home or self-care (01) ==
PROVIDERS: Emergency Provider Emergency Medicine; PCP Family Medicine
DX: K52.9 Noninfective gastroenteritis and colitis, unspecified (principal); R10.31 Right lower quadrant pain; Z87.891 Personal history of nicotine dependence
CPT/HCPCS: 74176; 80048; 85025; 96360; 96361; 99285; J7030; A4216

== ENCOUNTER 2021-08-06 16:13 | Emergency (ER) | payer MEDICAID, SELFPAY ==
[2021-08-06 16:15] VITALS: BP 123/69; PULSE 81; RESP 16; TEMP 37.7; BMI 33.3
[2021-08-06 16:16] VITALS: BP 123/69; PULSE 81; RESP 16; TEMP 37.7; O2SAT 96
--- NOTE | 2021-08-06 16:25 | ED.RN ---
sx started sat.
--- NOTE | 2021-08-06 16:34 | EKG12_ITS ---
Test Reason : Blood Pressure : / mmHG Vent. Rate : 071 BPM Atrial Rate : 071 BPM P-R Int : 136 ms QRS Dur : 078 ms QT Int : 410 ms P-R-T Axes : 056 011 025 degrees QTc Int : 445 ms Normal sinus rhythm Nonspecific ST abnormality Abnormal ECG Confirmed by ISAAC BOGGS, BEENA ([id number]), metropolitan editor FLORINDA HAYES ([id number]) on 08/09/2021 9:59:18 AM Referred By: DOUG Confirmed By:BEENA GRAY MD
--- NOTE | 2021-08-06 16:35 | EX.ED.DYSGE1 ---
HPI History of Present Illness Chief Complaint: Fever Narrative Narrative: 46-year-old female day 8 of COVID-19 pneumonitis. She states that she initially had fever, chills, body aches, cough. She states that her taste and smell have returned already. Yesterday she was able to eat more significantly in previous days. Patient states that she has been drinking several bottles of water a day. She is making urine. She does not have dysuria. Patient states that she has had some diarrhea which is dark. He denies any bloody stools. She has intermittent nausea. She states that she is having trouble controlling her fevers and is alternating Tylenol and ibuprofen. Patient also complains with dizziness which is not vertiginous in nature. She had a headache yesterday but states she drank coffee and it went away. She states she had not had coffee in a couple of days. She currently does not have a headache. No visual complaints. No confusion. PFSH PFSH Home Medications alprazolam 0.5 mg PO DAILY PRN 10/09/15 [History Last Taken Unknown] colestipol 1 gm PO BID 10/09/15 [History Last Taken Unknown] fluoxetine 60 mg PO DAILY 10/09/15 [History Last Taken Unknown] trazodone 100 mg PO DAILY 10/09/15 [History Last Taken Unknown] dexamethasone 6 mg PO DAILY #7 tab 08/06/21 [Rx Last Taken Unknown] esomeprazole magnesium [Nexium] 40 mg PO DAILY 08/06/21 [History Last Taken Unknown] ondansetron 4 mg PO Q8H PRN PRN #20 tab 08/06/21 [Rx Last Taken Unknown] Allergy/AdvReac Type Severity Reaction Status Date / Time egg Allergy Other Verified 08/06/21 16:16 Fish Containing Products Allergy Anaphylaxis Verified 08/06/21 16:16 Penicillins [PCN] Allergy Swelling Verified 08/06/21 16:16 shellfish derived Allergy Anaphylaxis Verified 08/06/21 16:16 Surgical History History of cholecystectomy Social History Smoking Status: Former smoker alcohol intake: never ROS ROS ED Constitutional Constitutional ED: Reports chills and fever(s) Eyes Eyes: Denies blurry vision or change in vision ENT ENT ED: Denies rhinorrhea or sore throat Respiratory/Chest Respiratory/Chest: Reports cough and dyspnea Gastrointestinal Gastrointestinal: Reports diarrhea and nausea; Denies abdominal pain Genitourinary Genitourinary ED: Denies dysuria or hematuria Musculoskeletal Musculoskeletal: Reports myalgias; Denies arthralgias or neck pain Integumentary Denies Abrasions or rash Neurologic Neurologic: Reports headache(s); Denies paresthesias EXAM Physical Exam Const Vital Signs: 08/06/21 16:15 08/06/21 16:16 08/06/21 16:58 Temperature 99.8 F H 99.8 F H Temperature Source Temporal Temporal Pulse Rate 81 81 Respiratory Rate 16 16 Respiratory Pattern Normal Blood Pressure 123/69 H 123/69 H Blood Pressure Mean 87 87 Pulse Ox 96 Positive well nourished General Appearance ED: NAD; Negative for pallor HEENT Reports moist mucous membranes Negative for trauma Eyes PERRL and EOMs intact bilaterally Neck no lymphadenopathy and supple Resp normal respiratory effort and clear to auscultation bilaterally Cardio regular rate and regular rhythm Extremity normal to inspection General Extremety ED: Negative for tenderness Neuro oriented x3 and CN's II-XII intact bilaterally Sensorium / Orientation: alert Psych mental status grossly normal Skin no rashes or lesions noted General Skin Exam: Negative for jaundice or pallor MDM MDM MDM Narrative Medical decision making narrative: Patient presenting on day 8 of COVID-19 symptoms. She states has been having controlling her fevers however her temperature is 99.8 on arrival. Her nurse did check an oral temperature which she stated to me was 98.6. Patient states that she is eating now and her nausea is better. She is concerned she could be dehydrated due to the diarrhea and nausea previously. She does not have any abdominal pain. Otherwise her vital signs are normal. The patient is telling me that her chest feels sticky. I will obtain a troponin and chest x-ray as well as EKG and basic lab work to see if she is dehydrated. Patient's blood work shows a normal CBC. CMP is normal. Procalcitonin negative. Troponin is 6. EKG on my interpretation shows a normal sinus rhythm with a ventricular rate of [address] elevation or depression. Chest x-ray my interpretation shows viral pneumonia in the right long and the radiologist does agree. Patient noted to be 96% on room air sitting in bed. When she stands she drops to 86%. She was ambulated on 2 L to maintain sats of 96% and her dizziness seems to have improved. She be given dexamethasone in the ED. She is given a prescription of this x1 week. She was comfortable being discharged home with dexamethasone and O2 for ambulation. She is given strict return precautions. She is to monitor her O2 at home and return if it is dropping. She was given Zofran for nausea. Patient stable discharge at this time. Impression: 1. COVID-19 pneumonitis 2. Hypoxic respiratory failure 3. Nausea Lab Data Labs: Laboratory Results - last 24 hr 08/06/21 08/06/21 08/06/21 16:55 16:55 16:55 WBC Cancelled Corrected WBC Cancelled RBC Cancelled Hgb Cancelled Hct Cancelled MCV Cancelled MCH Cancelled MCHC Cancelled RDW Std Deviation Cancelled RDW Coeff of Babs Cancelled Plt Count Cancelled MPV Cancelled Immature Gran % (Auto) Cancelled Neut % (Auto) Cancelled Lymph % (Auto) Cancelled [place] % (Auto) Cancelled Eos % (Auto) Cancelled Baso % (Auto) Cancelled Absolute Neuts (auto) Cancelled Absolute Lymphs (auto) Cancelled Total Counted Cancelled Neutrophils % (Manual) Cancelled Band Neutrophils % Cancelled Lymphocytes % (Manual) Cancelled Monocytes % (Manual) Cancelled Eosinophils % (Manual) Cancelled Basophils % (Manual) Cancelled Metamyelocytes % Cancelled Myelocytes % Cancelled Promyelocytes % Cancelled Blast Cells % Cancelled Plasma Cell % (Manual) Cancelled Other Cells % Cancelled Nucleated RBC % Cancelled Nucleated RBCs/100 WBC Cancelled Differential Comment Cancelled Diff Path Review Cancelled Hypersegmented Neuts Cancelled Atypical Lymphocytes Cancelled Reactive Lymphocytes Cancelled Smudge Cells Cancelled Toxic Granulation Cancelled Toxic Vacuolation Cancelled Dohle Bodies Cancelled Harry Rods Cancelled Platelet Estimate Cancelled Plt Morphology Comment Cancelled RBC Morphology Cancelled Polychromasia Cancelled Hypochromasia Cancelled Poikilocytosis Cancelled Basophilic Stippling Cancelled Anisocytosis Cancelled Microcytosis Cancelled Macrocytosis Cancelled Spherocytes Cancelled Sickle Cells Cancelled Target Cells Cancelled Tear Drop Cells Cancelled Ovalocytes Cancelled Stomatocytes Cancelled [place] Bodies Cancelled Fatou Cells Cancelled Bite Cells Cancelled Crenated Cell Cancelled Acanthocytes (Spur) Cancelled Rouleaux Cancelled Schistocytes Cancelled Sodium Cancelled Potassium Cancelled Chloride Cancelled Carbon Dioxide Cancelled Anion Gap Cancelled BUN Cancelled Creatinine Cancelled Estim Creat Clear Calc Cancelled Est GFR (MDRD) Af Amer Cancelled Est GFR (MDRD) Non-Af Cancelled BUN/Creatinine Ratio Cancelled Glucose Cancelled Calcium Cancelled Total Bilirubin Cancelled AST Cancelled ALT Cancelled Alkaline Phosphatase Cancelled Troponin I High Sens Cancelled Total Protein Cancelled Albumin Cancelled Globulin Cancelled Albumin/Globulin Ratio Cancelled Procalcitonin Cancelled 08/06/21 08/06/21 08/06/21 17:51 17:51 17:51 WBC 4.6 Corrected WBC RBC 5.21 Hgb 16.0 H Hct 46.4 MCV 89.1 MCH 30.7 MCHC 34.5 RDW Std Deviation 43.1 RDW Coeff of Babs 13.2 Plt Count 218 MPV 9.8 Immature Gran % (Auto) 0.400 Neut % (Auto) 64.4 Lymph % (Auto) 30.7 [place] % (Auto) 4.3 Eos % (Auto) 0.0 Baso % (Auto) 0.2 Absolute Neuts (auto) 3.0 Absolute Lymphs (auto) 1.41 Total Counted Neutrophils % (Manual) Band Neutrophils % Lymphocytes % (Manual) Monocytes % (Manual) Eosinophils % (Manual) Basophils % (Manual) Metamyelocytes % Myelocytes % Promyelocytes % Blast Cells % Plasma Cell % (Manual) Other Cells % Nucleated RBC % 0 Nucleated RBCs/100 WBC Differential Comment Diff Path Review Hypersegmented Neuts Atypical Lymphocytes Reactive Lymphocytes Smudge Cells Toxic Granulation Toxic Vacuolation Dohle Bodies Harry Rods Platelet Estimate Plt Morphology Comment RBC Morphology Polychromasia Hypochromasia Poikilocytosis Basophilic Stippling Anisocytosis Microcytosis Macrocytosis Spherocytes Sickle Cells Target Cells Tear Drop Cells Ovalocytes Stomatocytes [place] Bodies Crowell Cells Bite Cells Crenated Cell Acanthocytes (Spur) Rouleaux Schistocytes Sodium 140 Potassium 3.5 Chloride 106 Carbon Dioxide 26.0 Anion Gap 8 BUN 13 Creatinine 0.56 Estim Creat Clear Calc 111.75 Est GFR (MDRD) Af Amer 149 Est GFR (MDRD) Non-Af 123 BUN/Creatinine Ratio 23.2 H Glucose 126 H Calcium 8.6 Total Bilirubin 0.40 AST 51 H ALT 49 Alkaline Phosphatase 102 Troponin I High Sens 7 Total Protein 7.0 Albumin 3.1 L Globulin 3.9 Albumin/Globulin Ratio 0.8 L Procalcitonin 0.06 Radiography Diagnostic Testing: Radiology Impression Chest X-Ray 08/06/21 16:38 IMPRESSION: Possible viral/Covid pneumonia in the right lung versus atelectasis. Electronically Signed: Thong Chu MD at 18:02 EDT Tel , Service support , Discharge Plan Triage Chief Complaint: Fever ED Provider: Margarito Erickson Dx/Rx/DC Orders Instructions: Coronavirus Disease 2019 (COVID-19): Caring for Yourself or Others Prescriptions: New ondansetron 4 mg tablet,disintegrating 4 mg PO Q8H PRN PRN (Reason: Nausea) Qty: 20 RF: 0 dexamethasone 6 mg tablet 6 mg PO DAILY Qty: 7 RF: 0 No Action alprazolam 0.25 MG tablet 0.5 mg PO DAILY PRN (Reason: Anxiety) RF: 0 trazodone 100 MG tablet 100 mg PO DAILY RF: 0 fluoxetine 20 MG capsule 60 mg PO DAILY RF: 0 colestipol 1 GM tablet 1 gm PO BID RF: 0 esomeprazole magnesium [Nexium] 40 mg Capsule,Delayed Release(Dr/Ec) 40 mg PO DAILY RF: 0 Primary Care Provider: Justin Duncan Referrals: Justin Duncan MD [Primary Care Provider] - Disposition Disposition: Home, Self Care
--- NOTE | 2021-08-06 16:38 | RAD_ITS ---
STUDY: X-RAY CHEST REASON FOR EXAM: Female, 46 years old. cough TECHNIQUE: Frontal portable view of the chest COMPARISON: 24 June 2016 FINDINGS: Interstitial opacities are mildly coarsened in the right midlung zone. There is no lobar pneumonia, pneumothorax, pulmonary edema or cardiomegaly. There are cholecystectomy clips. RAD/Chest 1 View (Portable) IMPRESSION: Possible viral/Covid pneumonia in the right lung versus atelectasis. Electronically Signed: Thong Chu MD at 18:02 EDT Tel , Service support ,
--- NOTE | 2021-08-06 17:31 | ED.RN ---
pt up to [facility]. then to sink to wash hands. sats dropped to 84% on ra.
[2021-08-06 18:10] LABS: Absolute Lymphocyte Count 1.41 X10^3/uL (0.83-4.51); Basophil# 0.01 X10^3/uL; Basophil% 0.2 % (0-1); Hematocrit 46.4 % (37-47); Lymphocyte # 1.41 X10^3/ul (0.83-4.51); Lymphocyte % 30.7 % (19-41); Mean Corp Hgb Conc 34.5 g/dL (32-36); Mean Corpuscular Hgb 30.7 pg (27.0-32.0); Mean Corpuscular Volume 89.1 fL (81-99); Mean Platelet Vol. 9.8 fl (6.2-12.0); Monocyte% 4.3 % (0-10); NRBC Flagged by Analyzer 0 % (0-5); Neutrophil # 2.96 X10^3/uL (2.7-7.7); Neutrophil % 64.4 % (47-70); Platelet Count 218 K/mm3 (150-450); RBC Distribution Width CV 13.2 % (11.6-14.6); RBC Distribution Width SD 43.1 fl (35.1-43.9); Red Blood Count 5.21 M/mm3 (4.2-5.4); White Blood Count 4.6 K/mm3 (4.4-11.0)
[2021-08-06 18:27] LABS: ALB/GLOB Ratio 0.8 RATIO (0.9-2.4); AST(SGOT) 51 U/L (15-37); Alanine Aminotransfer ALT/SGPT 49 U/L (13-56); Albumin, Serum 3.1 g/dL (3.2-5.0); Alkaline Phosphatase 102 U/L (45-117); Anion Gap 8 (5-15); BUN 13 mg/dL (7-18); BUN/Creat Ratio 23.2 RATIO (10-20); Calcium,Total 8.6 mg/dL (8.5-10.1); Chloride 106 mmol/L (98-107); Creatinine, Serum 0.56 mg/dL (0.55-1.02); EST Glomerular Filtration Rate 123 mL/min (>60); Est Glom Filt Rate - Afr Amer 149 mL/min (>60); Estimated Creatinine Clearance 111.75 ml/min; Globulin 3.9 g/dL (2.2-4.2); Glucose 126 mg/dL (74-106); Potassium 3.5 mmol/L (3.5-5.1); Sodium Level 140 mmol/L (136-145); Troponin-I HS 7 pg/mL (3.0-54.0)
[2021-08-06 18:34] LABS: Procalcitonin 0.06 ng/mL (0.00-0.09)
[2021-08-06] MEDS: dexAMETHasone 10 MG/ML Vial 6 MG IV (20:09)
[2021-08-06 20:25] VITALS: BP 121/89; PULSE 82; RESP 18; TEMP 37.2; O2SAT 95
== END 2021-08-06 20:25 | disposition home or self-care (01) ==
PROVIDERS: Emergency Provider Student in an Organized Health Care Education/Training Program; PCP Family Medicine
DX: U07.1 COVID-19 (principal); J12.82 Pneumonia due to coronavirus disease 2019; J96.91 Respiratory failure, unspecified with hypoxia; R11.0 Nausea; Z87.891 Personal history of nicotine dependence; Z79.899 Other long term (current) drug therapy
CPT/HCPCS: 71045; 80053; 84145; 84484; 85025; 93005; 99283; A4216

== ENCOUNTER → 2022-04-17 | Outpatient (CLI) | payer MEDICAID, SELFPAY ==
[2022-04-17 09:38] LABS: Hemoglobin A1c 5.7 % (3.8-5.6)
[2022-04-17 10:18] LABS: Cholesterol 205 mg/dL (200); Estradiol 31.8 pg/mL; Follicle Stimulating Hormone 4.2 mIU/mL; High Density Lipoprotein 37 mg/dL; Luteinizing Hormone 1.3 mIU/mL; Triglycerides 199 mg/dL; Very Low Density Lipoprotein 40 mg/dL (5-40)
== END | disposition home or self-care (01) ==
LOC: WOBLAB 08:37
PROVIDERS: PCP Family Medicine; Visit Provider Obstetrics & Gynecology
DX: N95.1 Menopausal and female climacteric states (principal)
CPT/HCPCS: 36415; 80061; 82670; 83001; 83002; 83036

== ENCOUNTER 2023-03-10 15:24 | Emergency (ER) | payer MEDICAID, SELFPAY ==
[2023-03-10 15:25] VITALS: BP 138/98; PULSE 98; RESP 17; TEMP 36.6; O2SAT 100; BMI 34.7
--- NOTE | 2023-03-10 15:38 | CT_ITS ---
STUDY: CT ABDOMEN AND PELVIS WITHOUT CONTRAST REASON FOR EXAM: Female, 47 years old. right flank pain RADIATION DOSAGE (If Supplied By Facility): CTDIvol = ( 16.28 ) mGy, DLP = ( 821.37 ) mGycm TECHNIQUE: Transaxial images were obtained from the dome of the diaphragm to the symphysis pubis without oral contrast, and without intravenous contrast. Sagittal and coronal images were reconstructed. Individualized dose optimization techniques were used for this CT. COMPARISON: 03/14/2020 FINDINGS: The visualized lung bases are unremarkable. The visualized portions of the heart are within normal limits. There is decreased attenuation of the liver consistent with steatosis. There are surgical clips in the gallbladder fossa consistent with a prior cholecystectomy. Normal spleen. Normal pancreas. Normal bilateral adrenal glands. Normal right kidney. Normal left kidney. Normal visualized stomach. Normal small intestine. Normal colon. The appendix is visualized and appears normal. Normal abdominal aorta. Normal inferior vena cava. Normal retroperitoneum. Normal urinary bladder. Normal abdominal wall. Mild levoscoliosis lumbar spine with degenerative disc disease. CT/Abdomen/Pelvis without Cont IMPRESSION: Normal unenhanced CT of the abdomen and pelvis. No renal or renal stone. Electronically Signed: Crispin Coleman MD at 17:25 EDT ,
--- NOTE | 2023-03-10 15:39 | EDS_ITS ---
HPI History of Present Illness Chief Complaint: Abd Pain Detail of Chief Complaint: Right flank pain Informant: patient Onset/Context/Timing Onset: Yesterday Context: Gradual Onset Timing: Waxes and wanes Current Severity: Mild Maximum Severity: Moderate Narrative Narrative: Patient presents with right flank pain. She states around 1:00 yesterday afternoon she noted pain in the right lower quadrant that wraps around into the posterior right pelvis/mid back area. She denies any known injury. No fever or chills. She denies urinary symptoms. She does report a history of colitis and has had a prior cholecystectomy and hysterectomy. She still has both ovaries in place and still has her appendix. [facility] Medical History Anxiety Depression Hx of gastroesophageal reflux (GERD) Home Medications alprazolam 0.25 mg tablet 0.5 mg PO DAILY PRN Anxiety 10/09/15 [History Last Taken Unknown] colestipol 1 gram tablet 1 gm PO BID 10/09/15 [History Last Taken Unknown] fluoxetine 20 mg capsule 60 mg PO DAILY 10/09/15 [History Last Taken Unknown] trazodone 100 mg tablet 100 mg PO DAILY 10/09/15 [History Last Taken Unknown] dexamethasone 6 mg tablet 6 mg PO DAILY #7 tabs 08/06/21 [Rx Last Taken Unknown] esomeprazole magnesium 40 mg capsule,delayed release (Nexium) 40 mg PO DAILY 08/06/21 [History Last Taken Unknown] ondansetron 4 mg disintegrating tablet 4 mg PO Q8H PRN PRN Nausea #20 tabs 08/06/21 [Rx Last Taken Unknown] Allergy/AdvReac Type Severity Reaction Status Date / Time egg Allergy Other Verified 03/10/23 15:25 Fish Containing Products Allergy Anaphylaxis Verified 03/10/23 15:25 Penicillins [PCN] Allergy Swelling Verified 03/10/23 15:25 shellfish derived Allergy Anaphylaxis Verified 03/10/23 15:25 Surgical History History of cholecystectomy History of hysterectomy Social History Smoking Status: Former smoker alcohol intake: never ROS ROS ED Constitutional Constitutional ED: Denies chills or fever(s) Eyes Eyes: Denies discharge from eye(s) ENT ENT ED: Denies discharge from eye(s), rhinorrhea or sore throat Cardiovascular Cardiovascular: Denies chest pain or palpitations Respiratory/Chest Respiratory/Chest: Denies cough or dyspnea Gastrointestinal Gastrointestinal: Reports abdominal pain; Denies diarrhea, nausea or vomiting Genitourinary Genitourinary ED: Denies difficulty urinating, dysuria or hematuria Musculoskeletal Musculoskeletal: Reports back pain; Denies extremity pain Integumentary Denies Abrasions or rash Neurologic Neurologic: Denies headache(s) or weakness Psychiatric Psychiatric: Denies anxiety or depression Allergic/Immunologic Allergic/Immunologic ED: Denies lip swelling or urticaria EXAM Physical Exam Const Vital Signs: 03/10/23 15:25 Temperature 98 F Temperature Source Temporal Pulse Rate 98 Respiratory Rate 17 Blood Pressure 138/98 H Blood Pressure Mean 111 Pulse Ox 100 Oxygen Delivery Method Room Air Positive well nourished and well developed General Appearance ED: well developed HEENT Reports normocephalic and head/scalp atraumatic Eyes PERRL and EOMs intact bilaterally Neck supple Chest Wall inspection of chest normal and palpation of chest normal Resp normal respiratory effort and clear to auscultation bilaterally Cardio regular rate and regular rhythm GI GI Narrative: Abdomen soft with mild tenderness in the right mid abdomen. No palpable masses. Active bowel sounds noted. Palpation: soft Back/Spine no CVA tenderness Extremity normal to inspection Neuro oriented x3 and no sensory deficits noted Sensorium / Orientation: alert Motor Exam: strength 5/5 throughout Psych mental status grossly normal Skin no rashes or lesions noted MDM MDM MDM Narrative Medical decision making narrative: Patient declined anything for pain. Labwork obtained to evaluate for leukocytosis, anemia, and electrolyte derangement. CT of the flank obtained to evaluate for kidney stone, appendicitis, colitis. Lab Data Attestation: I reviewed the patient's lab results. Labs: Laboratory Results - last 24 hr 03/10/23 03/10/23 03/10/23 15:45 15:45 15:50 WBC 12.8 H RBC 5.13 Hgb 15.8 H Hct 47.0 MCV 91.6 MCH 30.8 MCHC 33.6 RDW Std Deviation 46.1 H RDW Coeff of Babs 13.6 Plt Count 318 MPV 9.0 Immature Gran % (Auto) 0.600 Neut % (Auto) 74.3 H Lymph % (Auto) 18.8 L Child[place] % (Auto) 4.9 Eos % (Auto) 0.9 Baso % (Auto) 0.5 Absolute Neuts (auto) 9.5 H Absolute Lymphs (auto) 2.40 Nucleated RBC % 0 Sodium 139 Potassium 3.7 Chloride 108 H Carbon Dioxide 27.0 Anion Gap 4 L BUN 16 Creatinine 0.74 Estim Creat Clear Calc 83.66 Est GFR (MDRD) Af Amer 107 Est GFR (MDRD) Non-Af 89 BUN/Creatinine Ratio 21.6 H Glucose 157 H Calcium 8.6 Total Bilirubin 0.40 Direct Bilirubin < 0.05 AST 38 H ALT 34 Alkaline Phosphatase 87 Total Protein 7.0 Albumin 3.5 Globulin 3.5 Lipase 40 Urine Color Yellow Urine Clarity Sl. Cloudy Urine pH 5.0 Ur Specific [place] 1.030 Urine Protein 30 H Urine Glucose (UA) Normal Urine Ketones 5 H Urine Occult Blood Negative Urine Nitrite Negative Urine Bilirubin Negative Urine Urobilinogen 1 H Ur Leukocyte Esterase Negative Urine RBC 0 SEEN Urine WBC 0 SEEN Ur Squamous Epith Cells 0-5 SEEN Urine Bacteria 0 SEEN Urine Mucus 0 SEEN Radiography Diagnostic Testing: Clinical Impression(s) from Imaging Studies Abdomen/Pelvis CT 03/10/23 15:38 IMPRESSION: Normal unenhanced CT of the abdomen and pelvis. No renal or renal stone. Electronically Signed: Crispin Coleman MD at 17:25 EDT , Differential Diagnosis Abdominal Pain: Appendicitis Reason(s) appendicitis less likely: Positive for Appendix Normal on Imaging and Bowel obstruction Reason(s) bowel obstruction less likely: no evidence of bowel obstruction on imaging studies Differential Diagnosis: Kidney stone Why less likely: No evidence of renal stone noted on imaging studies. Treatment and Re-Evaluation :: On repeat evaluation patient resting comfortably. Test results discussed with her. CBC reveals mild elevation in white count of 12.8 with 74% neutrophils. Chemistry studies unremarkable. LFTs and lipase are normal. Urinalysis reveals no evidence of infection. No evidence of hematuria. CT flank reveals no acute abnormalities. The appendix is visualized and appears normal. Test results are discussed with the patient. She will continue supportive care and monitor her symptoms at home. Return instructions given. Discharge Plan Triage Chief Complaint: Abd Pain ED Provider: Marilee Reeder Dx/Rx/DC Orders Clinical Impression: Flank pain Instructions: ED Flank Pain, Uncertain Cause Prescriptions: No Action alprazolam 0.25 MG tablet 0.5 mg PO DAILY PRN (Reason: Anxiety) trazodone 100 MG tablet 100 mg PO DAILY fluoxetine 20 MG capsule 60 mg PO DAILY colestipol 1 GM tablet 1 gm PO BID esomeprazole magnesium [Nexium] 40 mg Capsule,Delayed Release(Dr/Ec) 40 mg PO DAILY ondansetron 4 mg tablet,disintegrating 4 mg PO Q8H PRN PRN (Reason: Nausea) Qty: 20 0RF dexamethasone 6 mg tablet 6 mg PO DAILY Qty: 7 0RF Primary Care Provider: Justin Duncan Referrals: Justin Duncan MD [Primary Care Provider] - 3-5 Days if not improving Disposition Disposition: Home, Self Care
[2023-03-10 15:56] LABS: Bacteria 0 SEEN /hpf (None Seen); Mucous, Urine 0 SEEN /hpf (<or=2+); Red Blood Cells-Urine 0 SEEN /hpf (0-5); White Blood Cells 0 SEEN /hpf (0-5)
[2023-03-10 15:57] LABS: Absolute Neutrophil Count 9.5 X10^3/uL (2.0-7.7); Basophil# 0.07 X10^3/uL; Basophil% 0.5 % (0-1); Eosinophil# 0.11 X10^3/uL; Eosinophils% 0.9 % (0-5); Hemoglobin 15.8 g/dL (12.0-15.0); Lymphocyte % 18.8 % (19-41); Mean Corp Hgb Conc 33.6 g/dL (32-36); Mean Corpuscular Hgb 30.8 pg (27.0-32.0); Mean Corpuscular Volume 91.6 fL (81-99); Monocyte# 0.63 X10^3/uL; Monocyte% 4.9 % (0-10); NRBC Flagged by Analyzer 0 % (0-5); Neutrophil # 9.51 X10^3/uL (2.7-7.7); Neutrophil % 74.3 % (47-70); Platelet Count 318 K/mm3 (150-450); RBC Distribution Width CV 13.6 % (11.6-14.6); RBC Distribution Width SD 46.1 fl (35.1-43.9); Red Blood Count 5.13 M/mm3 (4.2-5.4); White Blood Count 12.8 K/mm3 (4.4-11.0)
[2023-03-10 15:58] LABS: Color, Urine Yellow (Yellow); Glucose, Dipstick Normal (Normal); Ketone-Dipstick 5 mg/dl (Negative); Leukocyte Esterase-Dipstick Negative /ul (Negative); Nitrite-Dipstick Negative (Negative); Occult Blood-Urine Negative /ul (Negative); Protein-Dipstick 30 mg/dl (Negative); Urine Bilirubin Dipstick Negative (Negative); Urine Clarity Sl. Cloudy (Clear); Urine Urobilinogen 1 mg/dl (Normal)
[2023-03-10 16:12] LABS: Squamous Epithelial Cells - UA 0-5 SEEN /hpf (5-10)
[2023-03-10 16:16] LABS: AST(SGOT) 38 U/L (15-37); Alanine Aminotransfer ALT/SGPT 34 U/L (13-56); Albumin, Serum 3.5 g/dL (3.2-5.0); Alkaline Phosphatase 87 U/L (45-117); Anion Gap 4 (5-15); BUN 16 mg/dL (7-18); BUN/Creat Ratio 21.6 RATIO (10-20); Bilirubin, Direct < 0.05 mg/dL (0.00-0.30); Calcium,Total 8.6 mg/dL (8.5-10.1); Chloride 108 mmol/L (98-107); Creatinine, Serum 0.74 mg/dL (0.55-1.02); EST Glomerular Filtration Rate 89 mL/min (>60); Est Glom Filt Rate - Afr Amer 107 mL/min (>60); Estimated Creatinine Clearance 83.66 ml/min; Globulin 3.5 g/dL (2.2-4.2); Glucose 157 mg/dL (74-106); Lipase 40 U/L (13-75); Potassium 3.7 mmol/L (3.5-5.1); Sodium Level 139 mmol/L (136-145)
== END 2023-03-10 17:36 | disposition home or self-care (01) ==
PROVIDERS: Emergency Provider Emergency Medicine; PCP Family Medicine; Referring Provider Emergency Medicine; Visit Provider Emergency Medicine
DX: R10.9 Unspecified abdominal pain (principal); Z87.891 Personal history of nicotine dependence
CPT/HCPCS: 74176; 80048; 80076; 81001; 83690; 85025; 99283; A4216